=== PATIENT | male | born 1955 | race American Indian/Alaskan Native ===

== ENCOUNTER 2020-09-14 13:33 | Emergency (ER) | payer BC ==
--- NOTE | 2020-09-14 18:56 | XRay Report ---
RIGHT SHOULDER 3 VIEWS INDICATION / CLINICAL INFORMATION: Fall with right shoulder pain. COMPARISON: None available. FINDINGS: BONES / JOINT(S): There are mild degenerative changes involving the acromioclavicular joint. There is no evidence of fracture or subluxation. SOFT TISSUES: No significant abnormality. ADDITIONAL FINDINGS: The visualized portion of the right lung is clear. Signer Name: Ramses Hong MD Signed: 09/14/2020 6:51 PM Workstation Name: [id number]
--- NOTE | 2020-09-14 19:22 | Emergency Department Report ---
ED General Adult HPI - General Chief complaint: Fall Stated complaint: FELL DOWN STAIRS Time Seen by Provider: 09/14/20 19:01 Source: patient Mode of arrival: Ambulatory Limitations: No Limitations - History of Present Illness Initial comments: 65-year-old -[place] male patient complains of right shoulder pain after a fall 1 week ago. Patient states the pain only occurs when he tries to lift his arm and denies any chest pain, shortness of breath, or other injuries. Patient reports it was a trip and fall down the stairs. He denied any loss of consciousness, headache, or use of blood thinners. Patient rates his pain as a 6/10 in severity and has only tried [id number] topical treatments. - Related Data Previous Rx's Medication Instructions Recorded Last Taken Type Naproxen 500 mg PO BID PRN #14 tablet 09/14/20 Unknown Rx methOCARBAMOL [Robaxin TAB] 750 mg PO BID PRN #10 tablet 09/14/20 Unknown Rx Allergies Allergy/AdvReac Type Severity Reaction Status Date / Time No Known Allergies Allergy Unverified 09/14/20 13:48 ED Review of Systems ROS: Stated complaint: FELL DOWN STAIRS Other details as noted in HPI Constitutional: denies: chills, fever Respiratory: denies: cough, shortness of breath Cardiovascular: denies: chest pain Gastrointestinal: denies: abdominal pain Musculoskeletal: denies: back pain Neurological: denies: headache, numbness, paresthesias ED Past Medical Hx - Past Medical History Previous Medical History?: No - Surgical History Past Surgical History?: No - Medications Home Medications: Home Medications Medication Instructions Recorded Confirmed Last Taken Type Naproxen 500 mg PO BID PRN #14 tablet 09/14/20 Unknown Rx methOCARBAMOL [Robaxin TAB] 750 mg PO BID PRN #10 tablet 09/14/20 Unknown Rx ED Physical Exam - General Limitations: No Limitations General appearance: alert, in no apparent distress - Head Head exam: Present: atraumatic, normocephalic - Eye Eye exam: Present: normal appearance. Absent: scleral icterus - Neck Neck exam: Present: normal inspection, full ROM - Respiratory Respiratory exam: Present: normal lung sounds bilaterally. Absent: respiratory distress - Cardiovascular Cardiovascular Exam: Present: regular rate, normal rhythm - Extremities Exam Extremities exam: Present: other (Pain noted over biceps tendon insertion with active range of motion; no bony tenderness noted; no obvious deformity noted) - Back Exam Back exam: Present: full ROM - Neurological Exam Neurological exam: Present: alert, oriented X3, normal gait - Psychiatric Psychiatric exam: Present: normal affect, normal mood - Skin Skin exam: Present: warm, dry, intact, normal color. Absent: rash ED Medical Decision Making - Radiology Data Radiology results: report reviewed RIGHT SHOULDER 3 VIEWS INDICATION / CLINICAL INFORMATION: Fall with right shoulder pain. COMPARISON: None available. FINDINGS: BONES / JOINT(S): There are mild degenerative changes involving the acromioclavicular joint. There is no evidence of fracture or subluxation. SOFT TISSUES: No significant abnormality. ADDITIONAL FINDINGS: The visualized portion of the right lung is clear. - Medical Decision Making 65-year-old -[place] male patient complains of right shoulder pain after a fall 1 week ago. Patient states the pain only occurs when he tries to lift his arm and denies any chest pain, shortness of breath, or other injuries. Patient reports it was a trip and fall down the stairs. He denied any loss of consciousness, headache, or use of blood thinners. Patient rates his pain as a 6/10 in severity and has only tried [id number] topical treatments. No vitals noted in chart, however vitals were reviewed on patient's paper chart and were WNL. Lois Vargas RN notified into place vitals in chart. X-rays negative for any acute bony abnormality. Will treat with NSAIDs and muscle relaxers. Discussed in detail possible drowsiness with muscle relaxers and precautions,. Recommend follow-up with primary care in 3 to 5 days. Strict return precautions were discussed in detail with patient who verbalized understanding. Critical care attestation.: If time is entered above; I have spent that time in minutes in the direct care of this critically ill patient, excluding procedure time. ED Disposition Clinical Impression: Right shoulder strain Qualifiers: Encounter type: initial encounter Qualified Code(s): S46.911A - Strain of unspecified muscle, fascia and tendon at shoulder and upper arm level, right arm, initial encounter Disposition: TO HOME OR SELFCARE Is pt being admited?: No Condition: Stable Instructions: Shoulder Sprain, Muscle Strain Prescriptions: Naproxen 500 mg PO BID PRN #14 tablet PRN Reason: pain methOCARBAMOL [Robaxin TAB] 750 mg PO BID PRN #10 tablet PRN Reason: muscle spasm/tightness Referrals: [facility] [Provider Group] - 3-5 Days
== END 2020-09-14 19:43 | disposition home or self-care (01) ==
LOC: ED 13:33
DX: S46.911A Strain of unspecified muscle, fascia and tendon at shoulder and upper arm level, right arm, initial encounter (principal); Z79.899 Other long term (current) drug therapy; W19.XXXA Unspecified fall, initial encounter; Y93.89 Activity, other specified; Y92.89 Other specified places as the place of occurrence of the external cause; Y99.8 Other external cause status